=== PATIENT | female | born 1960 | race Caucasian/White ===

== ENCOUNTER 2017-02-18 13:40 | Emergency (ER) | payer MEDICARE ==
[2017-02-18 14:58] LABS: BASOPHIL % 1.2 % (0-2); PLATELET COUNT 197 x10^3mcL (130-400); RED CELL DISTRIBUTION WIDTH 12.8 % (11.5-14.5)
[2017-02-18 15:08] LABS: ALKALINE PHOSPHATASE 80 U/L (46-116); ALT/SGPT 24 U/L (14-59); AST/SGOT 19 U/L (15-37); BILIRUBIN TOTAL 0.7 mg/dL (0.20-1.00); CALCIUM 9.8 mg/dL (8.5-10.1); CARBON DIOXIDE 27.9 mmol/L (21-32); CHLORIDE SERUM 103 mmol/L (98-107); CREATININE SERUM 0.7 mg/dL (0.6-1.0); GFR1 > 60 mL/min; GLUCOSE SERUM 100 mg/dL (74-106); LIPASE 163 IU/L (73-393); SODIUM SERUM 142 mmol/L (136-145); TOTAL PROTEIN, SERUM 7.5 g/dL (6.4-8.2)
[2017-02-18 15:13] LABS: POTASSIUM SERUM 2.9 mmol/L (3.5-5.1)
[2017-02-18 21:41] VITALS: BP 125/72
== END 2017-02-18 21:41 | disposition home or self-care (01) ==
LOC: ED 13:40
PROVIDERS: Emergency Medicine
DX: E86.0 Dehydration (principal); E87.6 Hypokalemia; M79.7 Fibromyalgia
CPT/HCPCS: J2550; J3480; J7030

== ENCOUNTER 2018-01-07 14:56 | Emergency (ER) | payer OTHER ==
[~2018-01-07] VITALS: Ht 167.6 cm; Wt 64.4 kg
[2018-01-07 15:03] VITALS: BP 140/84; Ht 167.6 cm; Wt 64.4 kg
== END 2018-01-07 19:40 | disposition home or self-care (01) ==
LOC: ED 14:56
DX: S33.5XXA Sprain of ligaments of lumbar spine, initial encounter (principal); M79.7 Fibromyalgia; X50.1XXA Overexertion from prolonged static or awkward postures, initial encounter; Y93.89 Activity, other specified; Y92.89 Other specified places as the place of occurrence of the external cause; Y99.8 Other external cause status